=== PATIENT | female | born 1985 | race Caucasian/White ===

== ENCOUNTER → 2016-06-20 | Outpatient (CLI) | payer BC ==
--- NOTE | 2016-06-23 20:36 | DI ---
PELVIC ULTRASOUND, 06/20/2016 12:53 PM Clinical History: Pelvic pain. Previous Exam: None at this facility. Technique: Transabdominal and transvaginal scans are performed. The uterus measures 45 x 50 x 80 mm and the central uterine stripe measures 12 mm. The uterus itself appears normal. The right ovary has a 15 mm hypoechoic lesion consistent with a cyst filled with prot einaceous debris to account for the internal echoes within this cystic lesion. The right ovary is oth erwise normal. The left ovary is not identified with certainty but there is an ovoid inhomogeneous st ructure measuring about 6 x 7 x 8 cm in the left adnexal region. It may be associated with some calci fications. Color Doppler ultrasound shows no definite flow within this lesion. There is fluid in the cul-de-sac, barely greater than a physiologic amount. Readin. The uterus and right ovary are unremarkable except for a 15 mm cystic lesion that has bright echo es within it consistent with proteinaceous debris. 2. The left ovary is not identified either on the transabdominal or transvaginal scans with certaint y. There is a 6 x 7 x 8 cm ovoid mass that has bright echoes within it that may represent calcificati ons. Color Doppler ultrasound shows no flow within the lesion.
== END ==
LOC: US 12:43
PROVIDERS: ATTEND Nurse Practitioner Family
DX: R10.2 Pelvic and perineal pain (principal); N83.201 Unspecified ovarian cyst, right side
CPT/HCPCS: 76830; 76856

== ENCOUNTER → 2016-06-26 | Outpatient (CLI) | payer BC ==
--- NOTE | 2016-06-29 22:19 | DI ---
MRI PELVIS W/WO CN,06/26/2016 1:57 PM: Clinical History: Abdominal or pelvic swelling without mass or lump in the left lower quadrant. Previous Exam: Ultrasound pelvis performed June 20, 2016. Findings: Multiplanar MR images are obtained through the pelvis both before and after the intravenous administr ation of gadolinium contrast. The urinary bladder is unremarkable. The uterus and right ovary are unremarkable. Within the left adn exa, there is a complex mass which is of predominantly fat signal which drops out on fat saturation i mages. This mass measures 5.2 x 6.4 x 6.5 cm and contains either areas of signal which are isodense o n all images. There is no free fluid. The skeletal structures are unremarkable. Visualized portions of the lumbar spine demonstrate some mi ld disc desiccation at the L5/S1 level with a small annular fissure. There is a tampon within the vagina. There is no pelvic lymphadenopathy. Impression: 1. 5.2 x 6.4 x 6.5 cm mass within the left adnexa with imaging findings consistent with a mature luisa pilo.
== END ==
LOC: MRI 13:54
PROVIDERS: ATTEND Obstetrics & Gynecology
DX: R19.04 Left lower quadrant abdominal swelling, mass and lump (principal); D48.7 Neoplasm of uncertain behavior of other specified sites
CPT/HCPCS: 72197

== ENCOUNTER → 2016-07-16 | Outpatient (CLI) | payer BC | LOC: LAB 17:05 | PROVIDERS: ATTEND Obstetrics & Gynecology | DX: Z22.322 Carrier or suspected carrier of Methicillin resistant Staphylococcus aureus (principal) | CPT/HCPCS: 87641 ==

== ENCOUNTER 2016-07-24 09:22 | Observation (INO) | payer BC ==
[~2016-07-24 09:22] MED LIST: LIDOCAINE W/ SODIUM BICARB 0.5 ML SYR ONE; Lactated Ringers 2,000 ML PRIMARY IV ONE
[2016-07-24 09:49] LABS: BILIRUBIN,URINE NEGATIVE (NEG); CLARITY,URINE CLEAR (CLEAR); COLOR,URINE YELLOW; GLUCOSE, URINE (UA) NEGATIVE (NEG); NITRATE,URINE NEGATIVE (NEG); OCCULT BLOOD,URINE NEGATIVE (NEG); PH,URINE 5.5 (5.0-8.5); PROTEIN,URINE NEGATIVE (NEG); UROBILINOGEN,URINE 0.2 EU/dL (0.2)
[2016-07-24] MEDS ORDERED: ONDANSETRON 4 MG/2 ML VIAL ONE (10:44)
[2016-07-24] MEDS ORDERED: SCOPOLAMINE HYDROBROMIDE 1.5 MG - 1 EACH PATCH TRANSDERM ONE (10:44)
[2016-07-24] MEDS ORDERED: DEXAMETHASONE SOD PHOSPHATE 4 MG/1 ML VIAL ONE (10:45)
[2016-07-24 10:54] LABS: BASOPHILS # (AUTO) 0.01 10*3/UL; BASOPHILS % (AUTO) 0.3 % (0-1); EOSINOPHILS # (AUTO) 0.04 10*3/UL; HEMATOCRIT 37.5 % (37.0-47.0); HEMOGLOBIN 12.7 g/dL (12.0-16.0); LYMPHOCYTES # (AUTO) 1.37 10*3/uL; MEAN CORPUSCULAR HEMOGLOBIN 29.5 PG (27-31); MEAN CORPUSCULAR HGB CONC 33.9 g/dL (33-37); MEAN CORPUSCULAR VOLUME 87.2 FL (81-99); MEAN PLATELET VOLUME 12.4 FL (7.4-12.2); MONOCYTES # (AUTO) 0.25 10*3/UL (0.3-0.8); MONOCYTES % (AUTO) 6.4 % (5-15); NEUTROPHILS # (AUTO) 2.23 10*3/UL; NEUTROPHILS % (AUTO) 57.2 % (50-80)
[2016-07-24 10:56] LABS: PLATELET MORPHOLOGY COMMENT NORMAL MORPHOLOGY (NORM); RBC MORPHOLOGY COMMENT NORMAL MORPHOLOGY (NORM); WBC MORPHOLOGY COMMENT NORMAL MORPHOLOGY (NORM)
[2016-07-24 11:15] LABS: BLOOD UREA NITROGEN 10 mg/dL (7-22); BUN/CREATININE RATIO 14.28 (6-20); CALCIUM 9.1 mg/dL (8.7-10.7); EST GLOMERULAR FILTRATION > 60 (>60 ml/min/1.73m(2)); SERUM ALBUMIN 4.2 g/dL (3.5-4.8)
[2016-07-24 11:23] LABS: URINE SAMPLE TYPE CLEAN CATCH URINE
[2016-07-24] MEDS ORDERED: MIDAZOLAM 5 MG/1 ML ONE (11:44)
[2016-07-24] MEDS ORDERED: LIDOCAINE MPF 2% - 5 ML (20 MG/1 ML) ONE (11:44)
[2016-07-24] MEDS ORDERED: fentaNYL Inj 250 MCG/5 ML VIAL ONE (11:44)
[2016-07-24] MEDS ORDERED: ROCURONIUM 10 MG/1 ML - 5 ML VIAL IVP ONE (11:45)
[2016-07-24] MEDS ORDERED: Lactated Ringers 1,000 ML PRIMARY IV ONE ×3 (11:47→14:06)
[2016-07-24] MEDS ORDERED: BUPIVACAINE 0.25% W/ EPI - 10 ML VIAL ONE (11:59)
[2016-07-24] MEDS ORDERED: KETAMINE 100 MG/1 ML - 5 ML ONE (12:32)
[2016-07-24] MEDS ORDERED: SUFENTANIL 50 MCG/1 ML ONE (12:32)
[2016-07-24] MEDS ORDERED: Acetaminophen 1000mg Inj 100 ML IV ONE (12:52)
[2016-07-24] MEDS ORDERED: Sodium Chloride 0.9% 100 ML IV ONE (14:24)
[2016-07-24] MEDS ORDERED: KETOROLAC 30 MG/1 ML VIAL ONE (15:13)
[2016-07-24] MEDS ORDERED: NORMAL SALINE 10 ML SYRINGE FLUSH IVP PRN ×2 (15:43→16:03)
[2016-07-24] MEDS ORDERED: ONDANSETRON 4 MG/2 ML VIAL IVP PRN (15:43)
[2016-07-24] MEDS ORDERED: fentaNYL Inj 100 MCG/2 ML VIAL IVP PRN (15:43)
[2016-07-24] MEDS: HYDROmorphone 2 MG/1 ML IVP PRN ×2 (15:44→15:58)
[2016-07-24] MEDS ORDERED: HYDROmorphone 2 MG/1 ML ONE (15:45)
[2016-07-24] MEDS ORDERED: Lactated Ringers 1,000 ML PRIMARY IV SCH (15:45)
--- NOTE | 2016-07-24 15:45 | OB.OP.NOTE ---
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 Lysis of adhesions of sigmoid colon. Lysis of adhesions of left fallopian tube. Irrigation of ruptured left ovarian complex cyst-benign teratoma suspected Estimated Blood Loss (mL): 200 Fluids: 3500 mL LR. 150 mL urine. Irrigated with copious amounts of saline Complications: None apparent Left ovarian complex cyst did rupture with manipulating ovarian cyst towards the beginning of the surgery Left ovarian cystectomy was completed and mucus and hair and other teratoma findings were still fairly well encapsulated No evidence of injury to bowel or bladder with cautery or instruments Findings at Surgery: A small uterus with a small subserosal fibroid noted The right fallopian tube and right ovary appeared normal except for the right fimbria appeared to be slightly clubbed but when examined the fimbria were present A very large left ovarian complex cyst The left fallopian tube was adhesed to the left ovarian complex cyst from the cornua to the fimbria The left ovarian complex cyst did spontaneously rupture with manipulation and about 200 mL of fluid did spill from the complex ovarian cyst. The fluid was yellow in consistency. There was also an occasional hair that spilled and I suctioned and irrigated the yellow fluid and hair. The majority of the complex cyst that is suspected to be a benign teratoma was still encapsulated but I couldn't visualize hair and other material within the encapsulated complex cyst. This complex cyst was fairly intact when the left ovarian cystectomy was completed. Copious amounts of [id number] used at the end of the procedure and during the procedure to try to attempt to prevent a chemical peritonitis. Indications for the Procedure: The patient is a 31-year-old G0 with a large left ovarian complex cyst or mass that was diagnosed by annual exam but then confirmed by ultrasound and MRI of the pelvis. The patient desired a left ovarian cystectomy versus a left oophorectomy. The patient was offered a minilaparotomy with a left ovarian cystectomy versus a robotic-assisted laparoscopic left ovarian cystectomy and the patient opted for the robotic-assisted laparoscopic ovarian cystectomy. Since the patient was a G0, ovarian preservation was desired if possible. Description of Procedure: After the risks, benefits, alternatives and indications of a robotic-assisted laparoscopic left ovarian cystectomy were discussed with the patient and the consent form was signed and the patient's hCG was negative, the patient was brought to the operating room today. The patient underwent general endotracheal anesthesia without complication. However, just after the general anesthesia with ET tube was administered, the patient did have a rash on her neck and on her chest and abdomen. It was a macular slightly papular erythematous rash. The patient had not received IV antibiotics prior to this. After about 3 minutes, the macular papular erythematous rash aren't to resolve. Anesthesia thought it may be secondary to one of the induction agents for the general anesthesia. The patient's breathing pressures were not elevated during this time. The patient's vital signs were good. However, the patient's pulse was noted to be slightly elevated in the 110s. Blood pressure was good. We proceeded with the case. The patient was then prepped and draped sterilely in the [facility]. A timeout was completed and the patient and procedures were identified. Attention was turned to the patient's perineum where a weighted speculum was placed posteriorly and a [place] was placed anteriorly and the cervix was visualized and a single-tooth tenaculum was placed on the anterior lip of the cervix. The uterus was sounded to 8 cm. The uterine manipulator was placed with the balloon insufflated once it was inside the uterine cavity. The weighted speculum and single-tooth tenaculum was removed. The uterine manipulator was left in place. Gloves were then changed. Attention was turned to the patient's abdomen. An infraumbilical incision was decided upon and 1% lidocaine was injected infraumbilically and then after about 2 minutes a skin incision was made inferior to the umbilicus in a vertical fashion. Penetrating towel clamps were placed on either side of the incision through the patient's skin and elevated and under direct visualization the trocar and sleeve with the camera was used to place the infraumbilical trocar. This was done with direct visualization and once we are in the trocar was removed and the sleeve was left in place and CO2 gas insufflated the patient 's abdomen and the patient was placed in Trendelenburg. The sleeve was intra- abdominal and I could visualize the patient's intra-abdominal organs. We then focused on the patient's right side of her abdomen and under direct visualization the skin was injected with 1% Xylocaine and then a small incision was made and then a trocar and sleeve was placed under direct visualization with the camera and no injury to bowel was noted. The trocar was removed and the sleeve was left in place. The same was done on the patient's left side. Under direct visualization the trocar and sleeve was placed. I then placed a small 5 mm port in the patient's right upper quadrant under direct visualization using 1% Xylocaine to number skin and then an incision was made and then the trocar and sleeve was placed under direct visualization. This was for the compounding assistant port. The robot was then brought over to the operating room table and docked. #1 arm was placed in the right lateral port #2 arm was placed in the left lateral port and then the infraumbilical sleeve was attached to the camera. The monopolar scissors were placed in #1 and the gyrus bipolar was placed in #2 and the camera was placed in the infraumbilical port. I then went over to the console and manipulated the camera and instruments to visualize the uterus, right ovary and tube, and then left ovarian complex mass. Also there was some adhesions secondary to the mass probably being there for a while of the sigmoid: Over to the left lower quadrant. Mainly these adhesions were thin filmy adhesions. Photographs were taken. Attention was turned to the adhesions in the left lower quadrant from the sigmoid colon which were mainly filmy and these were taken down using the monopolar scissors usually just cutting but sometimes using the monopolar cautery. This helped to remove some of the adhesions from the sigmoid colon to the left ovarian complex mass. The left ovarian complex mass was very large. I wanted to get to the left ovary posterior to the fallopian tube in the ovarian fossa. I tried to manipulate gently the left ovarian complex mass while the uterus was manipulated anteriorly. Unfortunately as I was trying to move the the left ovarian complex cyst the complex cyst ruptured while I was manipulating it with the instruments. A copious amount of yellow fluid was drained-about 200 mL and this was suctioned and a small amount of irrigation was also used and then suctioned again. I then suctioned inside the left ovarian complex mass. A few strands of hair were also noted and were suctioned. At this time I was able to manipulate the left ovarian complex cyst which was still partially intact a little bit more easily. Secondary to the size of the left ovarian complex cyst, I contemplated a left oophorectomy. However, the left fallopian tube was adhesed to the left ovarian complex mass from the cornua to the fimbria. Therefore I detached the left fallopian tube from the left complex ovarian mass using monopolar and bipolar and then the monopolar scissors. I even thought about a left salpingectomy secondary to the adhesions and the concerned that if I did leave the left fallopian tube that it may have scar tissue or developed scar tissue and therefore increase the risk for a left fallopian tube ectopic . However, the patient is a G0 and she wanted her ovary and tube left in place at all possible. The left fallopian tube was gently teased from the left ovarian complex mass starting at the fimbria and then also going up to the cornua and in the mesial salpinx creating a window and then removing the left fallopian tube from the left ovarian complex cyst keeping the left fallopian tube at the cornua intact. After lysis of adhesions of the left fallopian tube, the left fallopian tube appeared intact and the cornua of the left fallopian tube appeared intact. My plan would be to get an HSG in about 3 months to determine tubal patency. I then decided to open up the left ovary and performed the left ovarian cystectomy. A large amount of the complex cyst still remained. I opened up the ovarian cortex is a monopolar scissors cauterizing it. I then was able to develop a plane between the remaining complex cyst and the ovarian cortex shell and I was able to perform a a complete cystectomy. I noted that there was hair and other material within the complex cyst that was mostly intact still. Photographs were taken of this complex cyst after the cystectomy was performed. I then suctioned the posterior cul-de-sac and then irrigated and suctioned and then irrigated and suctioned the posterior cul-de-sac and also the remaining left ovary. The hilum of the left ovary appeared to be fairly hemostatic although I did cauterize using the bipolar gyrus in a couple areas to allow for good hemostasis. We then decided to place the left ovarian complex cyst within an Endo Catch bag. To do this, we undocked the robot and through the infraumbilical port placed the Endo Catch bag and through one of the other ports we used a smaller 8 mm scope and under direct visualization placed the left ovarian complex cyst into the Endo Catch bag. We then set the Endo Catch bag at the side and then docked the robot again and placed the scope into the infraumbilical port site and the instruments into #1 and #2 arm of the robot. The left ovarian remnant was observed and irrigated and a few areas were bovied. The left fallopian tube was examined and there was a small amount of bleeding distally and I used the gyrus bipolar to cauterize this area briefly. I then asked my SURGICAL MANAGER partner-Dr. Aba Montanez-to examine the ovary from the robot console. He looked at the ovary and a few areas may have been bleeding. These were cauterized with the bipolar. Dr. Montanez thought that the ovarian remnant including the hilum of the ovary appeared hemostatic. I then used copious amounts of irrigation along the left ovary, superior to the uterus along the bladder, in the right and left ovarian fossas and everywhere. Irrigation and then suction. Again, after copious amounts of irrigation and suctioning, the procedure was completed. Photographs were taken. It appeared as though there was very good hemostasis. The robot was then undocked after instruments were removed. The Endo Catch bag was still in the infraumbilical incision with the suture outside of the patient's abdomen. A an extension of the fascial incision had to be completed to remove the Endo Catch bag. This was just about 5-6 mm. The Endo Catch bag was then removed. We did look with the laparoscope through a lateral port. There did not appear to be any fluid in the patient's posterior cul-de-sac with the patient more out of T [place]. There appeared to be good hemostasis. The infraumbilical fascial incision was closed with 0 Vicryl suture after looking for the fascial edges using S [place]. The fascial edges were identified and were placed on the fascia. The fascia was closed. Then another fascial opening was found and the fascia was visualized with S [place] retracting the subcutaneous tissue and skin and Liban clamps were used to grasp the fascia and then the fascia was closed with 0 Vicryl suture in a [id number] suture as before and tied. Now, the infraumbilical incision appeared to be closed from a fascial standpoint and intact. 4-0 Monocryl suture was used to close the subcutaneous tissue of all 4 small incision sites. Stratafix was then used to close the skin and I did use 4-0 Monocryl on the infraumbilical incision on either end to close the skin incision completely. Steri-Strips were then placed and then bandages were placed over all 4 incision sites. The Singer catheter and uterine manipulator had been removed earlier. I examined the patient's cervix with a speculum and the cervix appeared to be hemostatic. The patient was awakened from her general endotracheal anesthesia. Sponge lap and needle counts were correct 2 The patient was brought to the PACU in stable condition Since it is late in the afternoon and the fact that I did a left ovarian cystectomy, I would like to observe the patient overnight to check for hemostasis and check an H&H in the morning and follow her vital signs overnight. Plan: The patient will be observed overnight. Pathology is pending.
[2016-07-24] MEDS ORDERED: Ondansetron ODT Tab 8 MG TAB PO PRN (16:03)
[2016-07-24] MEDS: IBUPROFEN 800 MG TABLET PO PRN (20:08)
[2016-07-24] MEDS: HYDROcodone-APAP 7.5 MG-325 MG TABLET PO PRN (20:08)
[2016-07-24] MEDS: DOCUSATE 100 MG CAPSULE PO SCH (20:08)
[2016-07-24] MEDS ORDERED: Promethazine Tab 25 MG TAB PO PRN (21:56)
[2016-07-25] MEDS: HYDROcodone-APAP 7.5 MG-325 MG TABLET PO PRN ×2 (01:16→07:03)
[2016-07-25 05:11] LABS: BASOPHILS # (AUTO) 0.01 10*3/UL; BASOPHILS % (AUTO) 0.1 % (0-1); EOSINOPHILS # (AUTO) 0.01 10*3/UL; EOSINOPHILS % (AUTO) 0.1 % (0-8)
[2016-07-25 05:37] LABS: HEMATOCRIT 34.9 % (37.0-47.0); HEMOGLOBIN 11.7 g/dL (12.0-16.0); LYMPHOCYTES # (AUTO) 1.99 10*3/uL; MEAN CORPUSCULAR HGB CONC 33.5 g/dL (33-37); MEAN CORPUSCULAR VOLUME 89.5 FL (81-99); MEAN PLATELET VOLUME 13.1 FL (7.4-12.2); MONOCYTES # (AUTO) 0.57 10*3/UL (0.3-0.8); MONOCYTES % (AUTO) 7.1 % (5-15); NEUTROPHILS # (AUTO) 5.42 10*3/UL; NEUTROPHILS % (AUTO) 67.8 % (50-80)
[2016-07-25 05:39] LABS: BLOOD UREA NITROGEN 7 mg/dL (7-22); CALCIUM 8.7 mg/dL (8.7-10.7); EST GLOMERULAR FILTRATION > 60 (>60 ml/min/1.73m(2))
[2016-07-25 06:48] LABS: PLATELET MORPHOLOGY COMMENT NORMAL MORPHOLOGY (NORM); RBC MORPHOLOGY COMMENT NORMAL MORPHOLOGY (NORM); WBC MORPHOLOGY COMMENT NORMAL MORPHOLOGY (NORM)
[2016-07-25] MEDS: IBUPROFEN 800 MG TABLET PO PRN (07:04)
[2016-07-25 07:30] VITALS: RESP 14; TEMP 97.2
[2016-07-25] MEDS: DOCUSATE 100 MG CAPSULE PO SCH (08:37)
--- NOTE | 2016-07-25 10:01 | PDOC(PROG) ---
Subjective Post Op Day: 1 Pain Management: PO Singer Catheter: No Flatus: No Diet: Regular Ambulating: Yes Concerns / Additional Information: The patient is feeling much better this morning. She was hungry and ate breakfast. She has been ambulating. No flatus. The patient started her menses last evening and her menses was due to start today. No fever or chills. The patient would like to go home. The patient still has some abdominal discomfort but it is not significant. The patient has been taking hydrocodone and this is help with her discomfort. The patient usually takes Naprosyn at home and not ibuprofen. She would like Naprosyn for discharge with the prescriptions. Objective - General General Appearance: POSITIVE: No Acute Distress, Cooperative - Cardiovacular Cardiovascular Exam: POSITIVE: RRR Edema: No Pedal Edema Extremities: Negative Dean's - Bilaterally - Respiratory Respiratory Exam: POSITIVE: Clear to Auscultation - Bilaterally - Abdomen Bowel Sounds: Present (In all 4 quadrants Abdomen is soft without guarding or rebound. Appropriate tenderness.) Abdominal Wound Assessment: Steri Strips Intact Assesstment / Plan Assessment / Plan: Assessment: Postoperative day #1 status post robotic-assisted laparoscopic left ovarian cystectomy for left ovarian complex mass that is most likely a benign teratoma and lysis of adhesions. Pathology is pending. The patient's postoperative H&H is 11.7 and 34.9. White count is 8 this morning. Platelets are slightly low and were low prior to surgery. The patient has a mild thrombocytopenia at 116,000. Plan: Discharge home today. Usual postoperative instructions were given to patient. Dressings were changed and Silverlon dressings were placed over her four small laparoscopic incisions Naprosyn 500 mg 1 by mouth twice a day with food or milk for 5 days then as needed Hydrocodone/Tylenol 1-2 tablets every 6 hours when necessary pain Colace 100 mg 1 capsule daily to twice a day when necessary constipation The patient should be taking a multivitamin daily. The patient may take a total of folate 4 mg daily every day. The patient should follow up with me on Thursday-07/29/2016 at 1530 hrs. The patient should feel slightly better every day. If the patient starts to have abdominal pain or fever or not feeling well, the patient should go to the emergency room or contact our clinic. Over this weekend, the patient should go to the emergency room. Pathology is pending. If the patient has not received information on the pathology report in one week, the patient should contact my office.
== END 2016-07-25 11:27 | disposition home or self-care (01) ==
LOC: SDSC 09:22 → MED/SURG 15:31
PROVIDERS: ADMIT Obstetrics & Gynecology; ATTEND Obstetrics & Gynecology
DX: D27.1 Benign neoplasm of left ovary (principal); N73.6 Female pelvic peritoneal adhesions (postinfective)
CPT/HCPCS: 36415 ×2; 58662; 80048; 80053; 81003; 84703; 85025 ×2; J0131; J0694; J1885; J2704; J3010; J1100; J1170; J2001; J2250; J2405; J3490; J7050; J7120

== ENCOUNTER → 2016-10-22 | Outpatient (CLI) | payer BC ==
--- NOTE | 2016-10-22 16:10 | DI ---
HYSTEROSALPINGOGRAM, 10/22/2016 2:20 PM: Clinical History: Stenosis of the left fallopian tube. Previous Exam: None at this facility. A "time out" session was performed to verify the patient's name and date of prior to obtaining informed signed consent prior for this procedure. The patient was then informed of benefits and risks , to include but not be limited, to allergies to medications (Betadine and iodinated contrast (Isovue 300) and infection. The cervical os was prepped with Betadine. The hysterosalpingogram catheter was introduced into the c ervical canal without difficulty and the balloon was inflated. During the exam, the balloon did pullb ack into the canal but there was no leakage and the procedure was continued. Under fluoroscopic annie nce, contrast was injected and there was prompt filling of the uterine cavity which has a normal appe arance as well as filling of both uterine tubes with prompt spillage of contrast on the right side in to the peritoneal cavity. The left side demonstrates a high-grade stenosis of the uterine tube roughl y 1 cm from the uterine cornu. With additional contrast, the remainder of the uterine tubes filled an d there is a saccular collection of contrast distally. Additional contrast was injected but there was preferential drainage into the peritoneal cavity from the right side. The post drainage film shows r esidual contrast in the saccular lesion on the left side. Readin. The uterine cavity and right uterine tube are normal. 2. There is a high-grade stenosis roughly 1 cm from the left cornu. The uterine tube is filled dista lly but there is always preferential drainage from the patent right side.
== END ==
LOC: RAD 14:13
PROVIDERS: ATTEND Obstetrics & Gynecology
DX: Z48.816 Encounter for surgical aftercare following surgery on the genitourinary system (principal); N97.1 Female infertility of tubal origin
CPT/HCPCS: 74740